=== PATIENT | male | born 1960 | race Hispanic/Latino ===

== ENCOUNTER 2018-02-19 08:29 | Day surgery (SDC) | payer BC, OTHER ==
[2018-02-19] MEDS ORDERED: Lactated Ringer's 500 ML IV ONE (09:05)
[2018-02-19 09:15] VITALS: TEMP 96.8
[2018-02-19] MEDS ORDERED: Lidocaine PF 2% (5 ml) Inj (For Cardiac Arrhy) IV ONE (10:44)
[2018-02-19] MEDS ORDERED: Propofol 10 mg/ml Inj (20 ML) ONE (10:44)
[2018-02-19 11:26] VITALS: BP 143/72; PULSE 52; RESP 17; O2SAT 97
== END 2018-02-19 13:25 | disposition home or self-care (01) ==
LOC: H.ENDO 08:29
PROVIDERS: ATTEND Internal Medicine Gastroenterology
DX: Z12.11 Encounter for screening for malignant neoplasm of colon (principal); I10 Essential (primary) hypertension; K64.8 Other hemorrhoids; K57.30 Diverticulosis of large intestine without perforation or abscess without bleeding
CPT/HCPCS: 45378; J2704; J7120

== ENCOUNTER 2018-11-22 09:05 | Emergency (ER) | payer OTHER ==
--- NOTE | 2018-11-22 10:17 | ED PDOC ---
HPI: Back Time Seen by Provider: 11/22/18 09:35 Chief Complaint (Nursing): Back Pain History Per: Patient History/Exam Limitations: no limitations Onset/Duration Of Symptoms: Days Quality Of Discomfort: Dull Additional Complaint(s): Hx of HTN and obesity presenting with lower back pain x 1 week. States it was R sided but also radiated across to the L. States he had "kidney stone" symptoms 5 days ago with pain radiating into his penis accompanied by hematuria, states that those symptoms have since resolved but still having lower back pain. States that when he moves or bends the pain gets worse, alleviated by rest. No fevers, nausea, vomiting, chills, sweats. Past Medical History Reviewed: Historical Data, Nursing Documentation, Vital Signs - Medical History PMH: HTN Denies: Chronic Kidney Disease - Surgical History Surgical History: Tonsillectomy - Family History Family History: States: Hypertension - Home Medications Home Medications: Ambulatory Orders Medication Instructions Recorded Atenolol [Tenormin] 1 tab PO DAILY 02/19/18 Cyclobenzaprine [Cyclobenzaprine 10 mg PO BID #15 tab 11/22/18 HCl] Ibuprofen [Motrin Tab] 600 mg PO Q6 #30 tab 11/22/18 - Allergies Allergies/Adverse Reactions: Allergies Allergy/AdvReac Type Severity Reaction Status Date / Time No Known Allergies Allergy Verified 11/22/18 10:05 Review of Systems ROS Statement: Except As Marked, All Systems Reviewed And Found Negative Genitourinary Male: Positive for: Hematuria. Negative for: Dysuria, Frequency Musculoskeletal: Positive for: Back Pain Physical Exam - Reviewed Nursing Documentation Reviewed: Yes Vital Signs Reviewed: Yes - Physical Exam Appears: Positive for: Well, Non-toxic, No Acute Distress Head Exam: Positive for: ATRAUMATIC, NORMAL INSPECTION, NORMOCEPHALIC Skin: Positive for: Normal Color, Warm, DRY Eye Exam: Positive for: EOMI, Normal appearance, PERRL ENT: Positive for: Normal ENT Inspection Neck: Positive for: Normal, Painless ROM Cardiovascular/Chest: Positive for: Regular Rate, Rhythm Respiratory: Positive for: CNT, Normal Breath Sounds Gastrointestinal/Abdominal: Positive for: Normal Exam, Soft Back: Positive for: Normal Inspection, Muscle Spasm (Lower lumbar para-vertebral tenderness). Negative for: L CVA Tenderness, R CVA Tenderness Extremity: Positive for: Normal ROM Neurologic/Psych: Positive for: Alert, registered nurse behavioral health II-XII, Oriented. Negative for: Motor/Sensory Deficits Medical Decision Making Medical Decision MakinAM Patient presenting with lower back pain, resolved hematuria --Well appearing, normal vitals --Unlikely kidney stone, but possible recently passed stone with another smaller stone --Likely MSK --Will check urine, CT --Will give NSAID/muscle relaxant 1130AM --Patient states he's feeling better --CT shows no acute stone, possibly already passed --Explained that bladder findings are inconclusive given underdistension --Referral given to urology --Well appearing upon discharge Disposition - Clinical Impression Clinical Impression: Back pain - Disposition Referrals: Quan Arana MD [Staff Provider] - Disposition: Routine/Home Disposition Time: 11:30 Condition: STABLE Prescriptions: Cyclobenzaprine [Cyclobenzaprine HCl] 10 mg PO BID #15 tab Ibuprofen [Motrin Tab] 600 mg PO Q6 #30 tab Instructions: Low Back Pain in Adults, Blood in the Urine (Hematuria) in Adults Forms: [employer] (E[place]ian)
[2018-11-22 10:19] VITALS: RESP 18; TEMP 97.9
[2018-11-22 10:30] LABS: SQUAMOUS EPITHIAL < 1 /hpf (0-5); URINE BILIRUBIN NEGATIVE (NEGATIVE); URINE BLOOD SMALL (NEGATIVE); URINE CLARITY CLEAR (Clear); URINE COLOR YELLOW (YELLOW); URINE GLUCOSE (UA) NEG (NEGATIVE); URINE HYALINE CAST >20 /hpf (0-2); URINE LEUKOCYTE ESTERASE NEG Leu/uL (Negative); URINE PROTEIN 100 mg/dL (NEGATIVE); URINE UROBILINOGEN 0.2-1.0 mg/dL (0.2-1.0)
--- NOTE | 2018-11-22 11:14 | CT ---
Date of service: 11/22/2018 PROCEDURE: CT Abdomen and Pelvis HISTORY: Flank pain, hematuria COMPARISON: None. TECHNIQUE: Contiguous axial images of the abdomen and pelvis. Oral contrast was administered. No IV contrast given. Coronal and Sagittal reformats generated. Radiation dose: Total exam DLP = 892.16 mGy-cm. This CT exam was performed using one or more of the following dose reduction techniques: Automated exposure control, adjustment of the mA and/or kV according to patient size, and/or use of iterative reconstruction technique. FINDINGS: Heart size is LOWER THORAX: Heart size is within range of normal. No significant pericardial effusion. There is a small hiatal hernia. Minor linear chronic atelectasis and or scarring changes seen both lung bases right greater than left as well as the middle lobe and lingular regions. LIVER: Liver is enlarged measuring over 20 cm in cc dimension. Very mild fatty hepatic infiltration. No obvious hepatic masses collections or calcifications seen on this noncontrast exam.. GALLBLADDER AND BILE DUCTS: Gallbladder is physiologically distended. No evidence of intraluminal gallbladder calculi.. PANCREAS: Unremarkable. No mass. No ductal dilatation. SPLEEN: Unremarkable. No splenomegaly. ADRENALS: No adrenal masses.. KIDNEYS AND URETERS: Kidneys demonstrate relatively symmetric size.. There is a punctate calcifications seen in the mid pole collecting system right kidney and lower pole collecting system left kidney.. Small partially exophytic cyst seen in the anterior upper and posterior mid to lower pole right kidney. BLADDER: Bladder is incompletely distended which in part accounts for thick-walled appearance. Muscular hypertrophy presumably contributes. Correlation with urinalysis to exclude cystitis or other intrinsic wall. REPRODUCTIVE: Prostate gland measures approximately 4.1 cm in transverse dimension. Prostatic calcifications are present. Evaluation. APPENDIX: Normal appendix. BOWEL: Evaluation of the bowel is limited due to the lack of oral contrast material. Stomach is incompletely distended. Visualized loops of small bowel exhibit normal contour and caliber. No evidence of acute mechanical small bowel obstruction. Moderate amount of stool seen throughout the large bowel consistent fecal retention/constipation. PERITONEUM: Unremarkable. No fluid collection. No free air. Small fat containing umbilical hernia. Small fat containing bilateral inguinal hernias left larger than right. LYMPH NODES: Unremarkable. No enlarged lymph nodes. VASCULATURE: Unremarkable. No aortic aneurysm. Minimal aortic atherosclerotic calcification or mural plaque present. BONES: Mild-moderate degenerative spondylosis of the thoracic and lumbar spine. OTHER FINDINGS: None. IMPRESSION: Hepatomegaly. Mild fatty hepatic infiltration. Findings also suggest mild constipation Punctate nonobstructing calcifications collecting system both kidneys. Bladder wall thickening likely due to incomplete distention and muscular hypertrophy however the possibility of cystitis or other intrinsic/invasive wall lesion not excluded. Correlation with urinalysis.
[2018-11-22 11:51] VITALS: BP 164/100; PULSE 62; O2SAT 98
== END 2018-11-22 11:35 | disposition home or self-care (01) ==
LOC: H.ER 09:05
DX: M54.5 Low back pain (principal); I10 Essential (primary) hypertension; Z87.442 Personal history of urinary calculi